=== PATIENT | male | born 1970 | race African-American/Black ===

== ENCOUNTER 2016-10-06 04:41 | Emergency (ER) | payer OTHER ==
[~2016-10-06] VITALS: Ht 180.3 cm; Wt 99.8 kg
[2016-10-06] MEDS ORDERED: INDOMETHACIN 2525 MG PO (05:30)
[2016-10-06] MEDS ORDERED: ULTRAM 50MG TAB50 MG PO (05:30)
[2016-10-06 06:10] VITALS: BP 176/96
== END 2016-10-06 05:32 | disposition home or self-care (01) ==
LOC: ER 04:41
DX: M79.672 Pain in left foot (principal); F17.210 Nicotine dependence, cigarettes, uncomplicated

== ENCOUNTER 2016-12-24 20:10 | Inpatient (IN) | payer OTHER ==
[~2016-12-24] VITALS: Ht 180.3 cm; Wt 95.7 kg
--- NOTE | ~2016-12-24 | HC ---
[facility] [place] [address] CONSULTATION Name: ABIODUNJAMAAL Room #: 360-[facility] IN ..#: [id number] Admission: 12/24/16 Attend Phys: Jc Ackerman MD Discharge: 12/27/16 Date of : 66 Report #: [id number] THIS REPORT FOR: //name// CC: Alejandro Ackerman DATE OF SERVICE: 12/26/2016 HISTORY OF PRESENT ILLNESS: The patient is a 40-year-old -[place] male who was admitted with acute mental status changes and problems with speech. MRI revealed a large left basal ganglia CVA. Neurology is involved. Upon discussion with the patient's girlfriend, she notes significant problems with his mentation abilities and concerns with overall functional independence. PAST MEDICAL HISTORY: Includes diabetes mellitus and hypertension. MEDICATIONS: Please see the full medication listing. HABITS: Tobacco abuse 1 pack per day. SOCIAL HISTORY: He lives in an apartment with female significant other, one floor, no steps, does not utilize gait aids. 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 No family in the area. ALLERGIES: No known drug allergies. REVIEW OF SYSTEMS: No current complaints of chest pain, shortness of breath, or abdominal discomfort. The assessment is somewhat limited with his speech difficulties. No obvious focal extremity pain complaints. PHYSICAL EXAMINATION: GENERAL: A 46-year-old -[place] male in no obvious distress. The patient is alert. He is pleasant. VITAL SIGNS: Last recorded temperature 98.9, pulse 71, respirations 18, blood pressure 163/99. HEENT: Appeared to be benign. NEUROLOGIC: Cranial nerves grossly intact. Facies are symmetric. He has obvious significant word finding difficulties with word substitution. He could follow some basic 1-step commands, but has difficulty in knowing exactly what I am asking him. I had some difficulty assessing his upper extremity strength as he was uncertain regarding what I was asking him to do as far as testing cat skinner strength. EXTREMITIES: As far as the upper extremities, he has functional range of motion, strength is probably a grade 4+/5. Lower extremities, functional range of motion, strength appears to be a 4+/5. DTRs are grade 1-[address]. [address] [address] CONSULTATION Name: JAMAAL RASCON Room #: 360-P [facility].#: [id number] Admission: 12/24/16 Attend Phys: Jc Ackerman MD Discharge: 12/27/16 Date of : 66 Report #: [id number] ASSESSMENT: A 46-year-old -[place] male with the following problem list: 1. Large left basal ganglia cerebrovascular accident. 2. Significant aphasia with word substitution. He has both the receptive and an expressive component. 3. Functional mobility and ADL deficits, which are to be further assessed. 4. Diabetes mellitus. 5. Hypertension. 6. Tobacco abuse. PLAN: Therapy evaluations are underway. We will be glad to follow along with you regarding rehab therapy needs. <ELECTRONICALLY SIGNED> By: Obey De Los Santos MD 01/03/17 1116 [id number] Obey De Los Santos MD /[facility]
--- NOTE | ~2016-12-24 | EKG ---
[place] [address] [facility] [place] [address] ELECTROCARDIOGRAM REPORT Name: JAMAAL RASCON Maria Esther Room #: 360-P ADM IN M.R.#: [id number] Admission: 12/24/16 Attend Phys: Jamaal Trevino DO Discharge: Date of : 66 Report #: [id number] THIS REPORT FOR: //name// [facility] ED Test Date: 2016-12-24 Test Time: 20:19:17 Pat Name: JAMAAL RASCON Department: Room: 360 Gender: M Shake Loader: Christi PRAJAPATI : 1970 Requested By: Kal Resendiz Order Number: [id number] MD: Phil Sarah Measurements Intervals [place] Rate: 78 P: 45 MO: 158 QRS: 29 QRSD: 100 T: 13 QT: 390 QTc: 445 Interpretive Statements Sinus rhythm Multiple premature complexes, vent & supraven Probable left atrial enlargement ST elev, probable normal early repol pattern No previous ECG available for comparison Electronically Signed On 12-25-2016 10:39:33 CDT by Phil Sarah [email or web address] <ELECTRONICALLY SIGNED> By: Phil Sarah MD 12/25/16 1039 18 18 Phil Sarah MD /[facility]
--- NOTE | ~2016-12-24 | 2DMMODE ---
[facility] [address] [place] [address] 2 D/M-MODE ECHOCARDIOGRAM Name: JAMAAL RASCON Room #: 360-P [facility] IN ..#: [id number] Admission: 12/24/16 Attend Phys: Roxanne Haro Discharge: Date of : 66 Date of Service: 12/26/16 1155 Report #: [id number] THIS REPORT FOR: //name// APPROVED REPORT Study performed: 12/26/2016 10:26:26 EXAM: Comprehensive 2D, Doppler, and color-flow Echocardiogram Patient Location: Bedside Room #: 360 Status: routine BSA: 2.14 BP: 171/99 mmHg Other Information Study Quality: Good Indications CVA/TIA Diabetes Hypertension/HDD Echo Enhancing Agent Indication: Rule out Shunt Agent(s) / Amount(s) Used: Agitated Saline 8 cc 2D Dimensions RVDd: 30.02 mm LVEF(%): 59.41 (>50%) IVSd: 17.03 (7-11mm) LVOT Diam: 29.32 (18-24mm) LVDd: 45.82 mm PWd: 16.88 (7-11mm) Ascending Ao: 37.16 (22-36mm) LVDs: 31.41 (25-40mm) Aortic Root: 39.76 mm IVC: 21.00 mm Alfonso's LVEF: 59.41 % Volumes Left Atrial Volume (Systole) Single Plane 4CH: 56.74 mL Single Plane 2CH: 44.87 mL LA ESV Index: 26.00 mL/m2 Aortic Valve AoV Peak Rip.: 1.21 m/s AO Peak Gr.: 5.86 mmHg LVOT Max P.49 mmHg LVOT Max V: 0.93 m/s [facility] [address] [place] [address] 2 D/M-MODE ECHOCARDIOGRAM Name: JAMAAL RASCON Room #: [address] [place] [address] [place] ..#: [id number] Admission: 12/24/16 Attend Phys: Roxanne Haro Discharge: Date of : 66 Date of Service: 12/26/16 1155 Report #: [id number] SANDRO Vmax: 5.20 cm2 Mitral Valve E/A Ratio: 0.7 MV Decel. Time: 203.14 ms MV E Max Rip.: 0.46 m/s MV A Rip.: 0.70 m/s MV PHT: 58.91 ms IVRT: 159.17 ms Pulmonary Valve PV Peak Rip.: 0.91 m/s PV Peak Gr.: 3.33 mmHg Pulmonary Vein P Vein S: 0.58 m/s P Vein A: 0.18 m/s P Vein D: 0.31 m/s P Vein A Dur.: 83.0 msec P Vein S/D Ratio: 1.87 Tricuspid Valve TR Peak Rip.: 2.63 m/s RAP Estimate: 5.00 mmHg TR Peak Gr.: 27.75 mmHg Left Ventricle The left ventricle is normal size. Moderate concentric left ventricular hypertrophy. Left ventricular systolic function is borderline. LVEF is 50%. Mild diastolic dysfunction is present (impaired relaxation pattern). Right Ventricle The right ventricle is normal size. The right ventricular systolic function is normal. Atria The left atrium size is normal. Injection of bubbles documented no interatrial shunt. Aortic Valve The aortic valve is normal in structure. No aortic regurgitation is present. There is no aortic valvular stenosis. Mitral Valve The mitral valve is normal in structure. Trace mitral regurgitation. No evidence of mitral valve stenosis. Tricuspid Valve The tricuspid valve is normal in structure. There is trace to mild [facility] [address] [place] [address] 2 D/M-MODE ECHOCARDIOGRAM Name: ABIODUNJAMAAL Room #: 360-P [facility] IN [facility]#: [id number] Admission: 12/24/16 Attend Phys: Roxanne Haro Discharge: Date of : 66 Date of Service: 12/26/16 1155 Report #: [id number] tricuspid regurgitation. The right atrial pressure is estimated at 5 mmHg. PAP is estimated at 33 mmHg. Pulmonic Valve The pulmonary valve is normal in structure. Trace pulmonic regurgitation. Great Vessels Aortic root is borderline dilated. Ascending aorta is borderline dilated at 3.7 cm IVC is normal in size and collapses >50% with inspiration. Pericardium There is no pericardial effusion. <Conclusion> The left ventricle is normal size. Moderate concentric left ventricular hypertrophy. LVEF is 50%. Mild diastolic dysfunction is present (impaired relaxation pattern). The right ventricle is normal size. The left atrium size is normal. There is no aortic valvular stenosis. Trace mitral regurgitation. There is trace to mild tricuspid regurgitation. The right atrial pressure is estimated at 5 mmHg. PAP is estimated at 33 mmHg. Trace pulmonic regurgitation. IVC is normal in size and collapses >50% with inspiration. <ELECTRONICALLY SIGNED> By: Ben Johnson MD, FACC 12/26/16 1155 1155 1155 Ben Johnson MD, FACC /INF
[~2016-12-24 20:10] MED LIST: INDOMETHACIN 2525 MG PO; ULTRAM 50MG TAB50 MG PO
[2016-12-24 20:12] VITALS: BP 149/97
[2016-12-24 20:37] LABS: ABSOLUTE NEUTROPHILS 3.6 thou/uL (1.4-8.2); BASOPHILS 1.2 % (0.0-2.0); EOSINOPHILS 5.7 % (0.0-3.0); HEMATOCRIT 38.6 % (42.0-52.0); HEMOGLOBIN 12.9 gm/dL (14.0-18.0); LYMPHOCYTES 34.2 % (24.0-44.0); MANUAL DIFF NO; MCH 28.6 pg (26.0-34.0); MCHC 33.4 g/dL (28.0-37.0); MCV 85.8 fL (80.0-100.0); MONOCYTES 7.8 % (1.0-8.0); PLATELET COUNT 210 thou/uL (150-400); POLYS 51.1 % (36.0-66.0); RDW 14.4 % (10.5-14.5); WBC 7.1 thou/uL (4.0-11.0)
[2016-12-24 20:46] LABS: ANION GAP 8 mmol/L (7-16); BUN 21 mg/dL (7-18); CALCIUM 9.4 mg/dL (8.5-10.1); CHLORIDE 104 mmol/L (98-107); CO2 29 mmol/L (21-32); CREATININE 1.2 mg/dL (0.7-1.3); GLUCOSE 250 mg/dL (74-106); POTASSIUM 3.2 mmol/L (3.5-5.1); SODIUM 141 mmol/L (136-145)
[2016-12-24] MEDS ORDERED: COZAAR 50 MG TA50 M2 PO (20:47)
[2016-12-24] MEDS ORDERED: METFORMIN HCL500 MG PO (20:48)
[2016-12-24] MEDS ORDERED: LIPITOR10 MG PO (20:48)
[2016-12-24 20:52] LABS: APTT 25.7 Seconds (24.5-32.8)
[2016-12-24 20:55] LABS: ALBUMIN 3.7 g/dL (3.4-5.0); ALKALINE PHOSPHATASE 102 U/L (46-116); MAGNESIUM 1.6 mg/dL (1.8-2.4); SGOT 15 U/L (15-37); SGPT 29 U/L (30-65); TOTAL BILIRUBIN 0.6 mg/dL (<0.1-1.0); TOTAL PROTEIN 7.1 g/dL (6.4-8.2); TROPONIN-I < 0.04 ng/mL (<0.04-0.07)
[2016-12-24 21:34] VITALS: BP 147/84
[2016-12-24 21:52] VITALS: BP 175/105
[2016-12-25 00:47] VITALS: BP 173/90
[2016-12-25 04:42] LABS: HEMATOCRIT 37.7 % (42.0-52.0); HEMOGLOBIN 12.4 gm/dL (14.0-18.0); MCH 28.4 pg (26.0-34.0); MCHC 32.9 g/dL (28.0-37.0); MCV 86.3 fL (80.0-100.0); RBC 4.36 mil/uL (4.50-6.00); RDW 14.6 % (10.5-14.5); WBC 5.9 thou/uL (4.0-11.0)
[2016-12-25 04:57] LABS: CALCIUM 8.7 mg/dL (8.5-10.1); POTASSIUM 3.3 mmol/L (3.5-5.1)
[2016-12-25 05:11] LABS: CHOLESTEROL 162 mg/dL (<200); HDL CHOLESTEROL 44 mg/dL (>40); LDL CHOLESTEROL 111 mg/dL (<100); SERUM ASSESSMENT Clear; TC:HDL 3.7 Ratio (Not establshd); TRIGLYCERIDE 38 mg/dL (<150); VLDL 8 mg/dL (<40)
[2016-12-25 05:16] VITALS: BP 167/103
[2016-12-25 09:33] VITALS: BP 172/99
[2016-12-25 11:09] LABS: MAGNESIUM 2.2 mg/dL (1.8-2.4); POTASSIUM 3.6 mmol/L (3.5-5.1); TROPONIN-I < 0.04 ng/mL (<0.04-0.07)
[2016-12-25 14:18] VITALS: BP 185/97
[2016-12-25 17:30] VITALS: BP 181/92
[2016-12-25 18:09] LABS: GLYCOHEMOGLOBIN (HGB A1C) 9.6 % (4.8-5.6)
[2016-12-25 20:00] VITALS: BP 175/100
[2016-12-26 04:00] VITALS: BP 171/99
[2016-12-26 05:04] LABS: BASOPHILS 0.9 % (0.0-2.0); EOSINOPHILS 5.1 % (0.0-3.0); HEMATOCRIT 37.9 % (42.0-52.0); HEMOGLOBIN 12.5 gm/dL (14.0-18.0); LYMPHOCYTES 25.1 % (24.0-44.0); MCH 28.3 pg (26.0-34.0); MCV 85.8 fL (80.0-100.0); MONOCYTES 5.8 % (1.0-8.0); PLATELET COUNT 203 thou/uL (150-400); POLYS 63.1 % (36.0-66.0); RBC 4.42 mil/uL (4.50-6.00); RDW 14.1 % (10.5-14.5); WBC 6.3 thou/uL (4.0-11.0)
[2016-12-26 05:10] LABS: MANUAL DIFF NO
[2016-12-26 05:17] LABS: CREATININE 0.8 mg/dL (0.7-1.3); MAGNESIUM 1.6 mg/dL (1.8-2.4); POTASSIUM 3.3 mmol/L (3.5-5.1)
[2016-12-26 05:38] LABS: LARGE PLATELETS FEW
[2016-12-26 08:00] VITALS: BP 163/99
[2016-12-26 11:46] LABS: CALCIUM 8.9 mg/dL (8.5-10.1); CREATININE 0.9 mg/dL (0.7-1.3); POTASSIUM 3.4 mmol/L (3.5-5.1)
[2016-12-26 11:47] LABS: MAGNESIUM 1.6 mg/dL (1.8-2.4)
[2016-12-26 12:00] VITALS: BP 176/98
[2016-12-26 16:00] VITALS: BP 150/95
[2016-12-26 20:10] VITALS: BP 170/92
[2016-12-26 22:11] LABS: MAGNESIUM 1.3 mg/dL (1.8-2.4); POTASSIUM 3.3 mmol/L (3.5-5.1)
[2016-12-27] VITALS: BP 161/79
[2016-12-27 05:30] VITALS: BP 156/84
[2016-12-27 06:57] LABS: CALCIUM 9.2 mg/dL (8.5-10.1); CREATININE 0.8 mg/dL (0.7-1.3); MAGNESIUM 2.4 mg/dL (1.8-2.4); POTASSIUM 3.9 mmol/L (3.5-5.1)
[2016-12-27 08:17] VITALS: BP 172/82
[2016-12-27] MEDS ORDERED: HUMALOG100 UNIT/1 SUBQ (11:39)
[2016-12-27] MEDS ORDERED: ADULT LOW DOSE81 MG PO (11:39)
[2016-12-27] MEDS ORDERED: PEPCID20 MG PO (11:39)
[2016-12-27 12:41] VITALS: BP 172/82
== END 2016-12-27 13:53 | DRG 64 ==
LOC: ER 20:10 → EROBS 21:06 → 3W 21:06
PROVIDERS: Emergency Medicine; Internal Medicine; Nurse Practitioner Family
PROC: 4A00X4Z Measurement of Central Nervous Electrical Activity, External Approach (ICD-10-PCS; principal; 2016-12-27)
DX: I63.9 Cerebral infarction, unspecified (principal); G93.40 Encephalopathy, unspecified; E11.9 Type 2 diabetes mellitus without complications; E87.6 Hypokalemia; E78.5 Hyperlipidemia, unspecified; E83.42 Hypomagnesemia; R47.01 Aphasia; I10 Essential (primary) hypertension; F17.210 Nicotine dependence, cigarettes, uncomplicated; Z79.84 Long term (current) use of oral hypoglycemic drugs; Z79.899 Other long term (current) drug therapy; Z23 Encounter for immunization; Z71.6 Tobacco abuse counseling; Z83.3 Family history of diabetes mellitus; Z82.3 Family history of stroke
CPT/HCPCS: 10779

== ENCOUNTER 2016-12-27 11:02 | Inpatient (IN) | payer OTHER ==
[~2016-12-27] VITALS: Ht 180.3 cm; Wt 94.3 kg
--- NOTE | ~2016-12-27 | PLAN ---
[facility] [place] [address] REHAB UNIT PLAN OF CARE Name: JAMAAL RASCON Room #: 513-P ADM IN M.R.#: [id number] Admission: 12/27/16 Attend Phys: Obey De Los Santos MD Discharge: Date of : 66 Report #: [id number] THIS REPORT FOR: //name// CC: Obey Sierra DATE OF SERVICE: 12/30/2016 SUBJECTIVE: The patient is seen back today in followup. No new complaints. Temperature 98.1, pulse 63, respirations 20, blood pressure 159/83. Transfers are standby assistance with gait min assist 250 feet without a device. In occupational therapy, he is supervisioned for upper body dressing and supervisioned for lower body dressing. In speech therapy, he does have moderate to severe comprehensive deficits with moderate to severe expressive deficits. ASSESSMENT: 1. Large left basal ganglia cerebrovascular accident. 2. Significant aphasia with expressive and receptive component. 3. Mild right-sided hemiparesis, improving, still with functional mobility and ADL deficits noted. 4. Functional mobility and ADL deficits. 5. Diabetes mellitus. 6. Hypertension. 7. Tobacco abuse. PLAN: The overall plan of care is based on the preadmission screen, post-admission physician evaluation and information garnered from therapy assessments. 1. Estimated length of stay is at least 10 days to 2 weeks pending progress. 2. Medical prognosis is reasonably good. 3. Anticipated interventions includes the interdisciplinary acute inpatient rehabilitation program. 4. Anticipated functional outcomes would be for the patient to hopefully be modified independent with mobility, ADLs and improvement in cognition and communication. 5. Discharge would be back home with his significant other. 6. Expected therapy by discipline includes PT, OT and speech 1 hour per day each five days a week throughout the duration of the acute inpatient rehabilitation stay. <ELECTRONICALLY SIGNED> By: Obey De Los Santos MD 01/03/17 1116 1017 0006 Obey De Los Santos MD /[facility]
--- NOTE | ~2016-12-27 | H ---
[facility] [place] [address] HISTORY AND PHYSICAL Name: JAMAAL RASCON Room #: 513-P ADM IN M.R.#: [id number] Admission: 12/27/16 Attend Phys: Obey De Los Santos MD Discharge: Date of : 66 Report #: [id number] THIS REPORT FOR: //name// CC: Obey Sierra DATE OF SERVICE: 12/27/2016 HISTORY OF PRESENT ILLNESS: The patient is a 40-year-old -[place] male who was originally admitted with acute mental status changes and problems with speech. MRI revealed a large left basal ganglia CVA. Neurology has been involved. The MRI did show subacute infarcts involving left parietal and temporal lobes in the middle cerebral artery distribution, most notable within the left basal ganglia. He was noted to have some right-sided weakness, upper extremity more than lower extremity with functional mobility and ADL deficits. He was noted to have significant speech problems with expressive aphasia. Some emotional ability. He is right handed. He has now been admitted for acute in-hospital inpatient rehabilitation. PAST MEDICAL HISTORY: Includes diabetes mellitus and hypertension. MEDICATIONS: Please see the full medication listing. This list includes his vitamin, herbals and supplements as far as we know. Each of these medications were individually reconciled upon admission to the rehab [place]. HABITS: Tobacco abuse 1 pack per day. SOCIAL HISTORY: Lives in an apartment with a female significant other, one floor, no steps. Did not utilize gait aids. 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 No family in the area. ALLERGIES: No known drug allergies. REVIEW OF SYSTEMS: No current complaints of chest pain, shortness of breath, abdominal discomfort. The assessment is limited with speech difficulties. No obvious focal extremity pain complaints. PHYSICAL EXAMINATION: GENERAL: A 46-year-old -[place] male, right-handed, in no obvious distress. The patient is alert. He is pleasant. VITAL SIGNS: Last recorded temperature 98, pulse 65, respirations 18, blood pressure 160/87. HEENT: Appeared to be benign. He may have some depressed right nasolabial fold. CHEST: Sounded clear to auscultation. CARDIOVASCULAR: Regular rate and rhythm. [facility] [address] [place] [address] HISTORY AND PHYSICAL Name: JAMAAL RASCON Room #: 513-P [facility] IN ..#: [id number] Admission: 12/27/16 Attend Phys: Obey De Los Santos MD Discharge: Date of : 66 Report #: [id number] ABDOMEN: Bowel sounds positive, nontender. GENITOURINARY AND RECTAL: Deferred. NEUROLOGIC: As far as speech, he does have definite word-finding deficits. He had difficulty telling me what type of work he did and was unable to say the word processing rep until his significant other started to word for him. Significant latency. He was able to tell me the place however and did some simple naming which was improved from when I saw him last. He is able to follow basic 1 step commands, but has more difficulty with increasing complexity. EXTREMITIES: Right upper extremity strength is grade 4 to 4-/5, right lower extremity is 4 to 4-, left upper and left lower extremity appeared to be full. He appears to have intact sensation to simultaneous stimulation both upper and lower extremities. DTRs are 1. Functionally, he has been contact guard with basic transfers and was min assist for ambulation at this point. He is swallowing on a regular thin diet per speech. ASSESSMENT: A 46-year-old -[place] male, right hand with the following problem list: 1. Large left basal ganglia cerebrovascular accident. 2. Significant aphasia with word substitution. He does have both the receptive and expressive component. 3. Mild right-sided hemiparesis, upper extremity greater than lower extremity. 4. Functional mobility and ADL deficits. 5. Diabetes mellitus. 6. Hypertension. 7. Tobacco abuse. PLAN: The patient is admitted for acute in-hospital inpatient rehabilitation. From a postadmission physician evaluation perspective, there are no relevant changes since the preadmission screening. Please see the above review of prior and current medical and functional conditions and comorbidities. Please see the patient's previous and current functional status. As far as risk of complications, he does have multiple medical comorbidities as noted above. Initial plan of care involves the interdisciplinary acute inpatient rehabilitation program with the goal of maximizing the patient's functional independence, so that he can hopefully return back to his prior living situation. Prognosis is reasonably good with estimated length of stay, probably around a week to 10 days, but we will need to see how he does in his therapies. Potential barriers would include his multiple medical comorbidities and decreased functional status. The patient does meet diagnostic criteria for an acute in-hospital inpatient rehabilitation stay. He meets medical necessity criteria. He does have the [address] [place] [address] HISTORY AND PHYSICAL Name: JAMAAL RASCON Room #: 513-P [facility] IN M.R.#: [id number] Admission: 12/27/16 Attend Phys: Obey De Los Santos MD Discharge: Date of : 66 Report #: [id number] tolerance for therapies and has appropriate discharge goals back to the home setting. <ELECTRONICALLY SIGNED> By: Obey De Los Santos MD 01/03/17 1116 0942 1155 Obey De Los Santos MD /[facility]
--- NOTE | ~2016-12-27 | HC ---
[facility] [place] [address] CONSULTATION Name: JAMAAL RASCON Room #: 513-P [facility] IN M.R.#: [id number] Admission: 12/27/16 Attend Phys: Obey De Los Santos MD Discharge: Date of : 66 Report #: [id number] THIS REPORT FOR: //name// CC: Obey Sierra DATE OF SERVICE: 12/31/2016 NEUROBEHAVIORAL STATUS EXAM ATTENDING PHYSICIAN: Obey De Los Santos MD TURF SALES PERSON: Adiel Meier, PhD CLINICAL PRESENTATION: The patient is a 46-year-old male admitted to the [facility] for comprehensive inpatient rehabilitation program to improve functional mobility, activities of daily living and self-care and mental status secondary to deficits from a large left basal ganglia CVA. He was at home with a female peer when he had difficulty with walking and eventually lost his balance and fell on to their bed. He was brought into the hospital and a MRI revealed a subacute infarction within the left parietal and temporal lobes in the middle cerebral artery distribution. His diagnoses on admission included a large left basal ganglia CVA, significant aphasia with word substitution, both receptive and expressive deficits, mild right hemiparesis, functional mobility and ADL deficits, diabetes mellitus, hypertension and tobacco abuse. A complete description of his medical condition, history and medications can be found in his medical record. Neuropsychological consultation was requested to provide assistance in the assessment of cognitive and emotional status and to provide recommendations and services. Prior to this most recent admission, he was living with a female peer in his home. The patient has no children. He had 1 sister that in 2011. Both parents are . 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 The patient has a remote history of drug abuse that includes treatment for crack cocaine. His treatment was completed seven years ago. There is no current use of alcohol or drugs. TECHNIQUES UTILIZED: Clinical interview, review of medical records, staff consultation and behavioral observation, mini mental status exam 2 standard version and family interview - female core winder machine operator. EXAMINATION FINDINGS: The patient was alert and cooperative with the assessment. He presents with diminished auditory comprehension. Auditory [facility] [address] [place] [address] CONSULTATION Name: ABIODUNJAMAAL Room #: 513-P [facility] IN .R.#: [id number] Admission: 12/27/16 Attend Phys: Obey De Los Santos MD Discharge: Date of : 66 Report #: [id number] comprehension is better maintained than expression. The patient does not report auditory or visual hallucinations. There is evidence of perseveration and intrusion errors contributing to executive dysfunction. He was perseverative throughout the assessment. Cognitive deficits are currently severe. The extent of his aphasia interferes with formal assessment of neurocognitive functioning. Given the deficits from aphasia, he was able to name common objects, repeat a specific sentence and show adequate auditory comprehension for a 3-step command. He was also is able to read and follow a single command. This type of presentation suggests aphasia with better maintained comprehension than expression. Intermittent depression and frustration is suggested with difficulty in verbal expression. DIAGNOSTIC IMPRESSION: Major neurocognitive disorder due to vascular disease, with intermittent frustration from impairment and communication -- extent to be determined. Adjustment disorder with depressed mood. RECOMMENDATIONS: The patient will benefit from the use of multiple choice options when responding to questions. Perseverative tendencies will interfere with an accurate response when questioned. Encourage the use of relaxation techniques and pausing for a refocusing of attention when perseverating his resopnse. Follow up neuropsychological testing in approximately 3-6 months will be of benefit to clarify the severity of his cognitive functioning. At this time, the use of compensatory strategies for aphasia will be helpful for the patient and his core winder machine operator. Thank you very much for allowing me to provide the consultation on this patient. <ELECTRONICALLY SIGNED> By: Adiel Meier, PhD 01/06/17 1516 1328 1501 Adiel Meier, PhD /nt
[~2016-12-27 11:02] MED LIST changes: +COZAAR 50 MG TA50 M2 PO; +LIPITOR10 MG PO; +METFORMIN HCL500 MG PO
[2016-12-27] MEDS ORDERED: ADULT LOW DOSE81 MG PO (11:39)
[2016-12-27] MEDS ORDERED: HUMALOG100 UNIT/1 SUBQ (11:39)
[2016-12-27] MEDS ORDERED: PEPCID20 MG PO (11:39)
[2016-12-27 19:45] VITALS: BP 160/87
[2016-12-28 04:29] LABS: HEMATOCRIT 36.5 % (42.0-52.0); HEMOGLOBIN 12.1 gm/dL (14.0-18.0); MCH 28.5 pg (26.0-34.0); MCHC 33.1 g/dL (28.0-37.0); MCV 86.1 fL (80.0-100.0); RBC 4.24 mil/uL (4.50-6.00); RDW 14.1 % (10.5-14.5); WBC 6.4 thou/uL (4.0-11.0)
[2016-12-28 04:38] LABS: CALCIUM 8.9 mg/dL (8.5-10.1); CREATININE 0.9 mg/dL (0.7-1.3); MAGNESIUM 1.7 mg/dL (1.8-2.4); POTASSIUM 3.5 mmol/L (3.5-5.1)
[2016-12-28 09:00] VITALS: BP 169/97
[2016-12-28 20:29] VITALS: BP 178/107
[2016-12-28 22:21] VITALS: BP 182/90
[2016-12-28 22:23] VITALS: BP 180/90
[2016-12-29 04:00] VITALS: BP 170/81
[2016-12-29 08:05] VITALS: BP 159/83
[2016-12-29 21:39] VITALS: BP 186/87
[2016-12-30 08:20] VITALS: BP 148/97
[2016-12-30 20:50] VITALS: BP 184/102
[2016-12-31 08:00] VITALS: BP 152/103
[2016-12-31 20:13] VITALS: BP 160/84
[2017-01-01 08:00] VITALS: BP 152/93
[2017-01-01 20:32] VITALS: BP 156/88
[2017-01-02 08:30] VITALS: BP 146/91
[2017-01-02 19:48] VITALS: BP 178/104
[2017-01-02 22:57] VITALS: BP 154/81
[2017-01-03 06:33] LABS: ABSOLUTE NEUTROPHILS 3.3 thou/uL (1.4-8.2); EOSINOPHILS 6.8 % (0.0-3.0); HEMATOCRIT 37.6 % (42.0-52.0); HEMOGLOBIN 12.5 gm/dL (14.0-18.0); LYMPHOCYTES 24.9 % (24.0-44.0); MCH 28.7 pg (26.0-34.0); MCHC 33.2 g/dL (28.0-37.0); MCV 86.3 fL (80.0-100.0); MONOCYTES 8.9 % (1.0-8.0); PLATELET COUNT 235 thou/uL (150-400); POLYS 58.4 % (36.0-66.0); RBC 4.36 mil/uL (4.50-6.00); RDW 14.3 % (10.5-14.5); WBC 5.7 thou/uL (4.0-11.0)
[2017-01-03 06:39] LABS: MANUAL DIFF NO
[2017-01-03 06:57] LABS: CALCIUM 9.6 mg/dL (8.5-10.1); CREATININE 0.9 mg/dL (0.7-1.3); MAGNESIUM 1.6 mg/dL (1.8-2.4)
[2017-01-03 07:06] LABS: POTASSIUM 4.1 mmol/L (3.5-5.1)
[2017-01-03 08:00] VITALS: BP 151/78
[2017-01-03 19:49] VITALS: BP 161/85
[2017-01-04 09:00] VITALS: BP 159/68
[2017-01-04 19:53] VITALS: BP 175/92
[2017-01-05 08:00] VITALS: BP 149/92
[2017-01-05] MEDS ORDERED: PEPCID20 MG PO (11:40)
[2017-01-05] MEDS ORDERED: COZAAR 50 MG TA50 M2 PO (11:40)
[2017-01-05] MEDS ORDERED: LIPITOR10 MG PO (11:40)
[2017-01-05] MEDS ORDERED: COLACE100 MG PO (11:40)
[2017-01-05] MEDS ORDERED: METFORMIN HCL500 MG PO (11:40)
[2017-01-05 16:25] VITALS: BP 175/92
[2017-01-05 20:45] VITALS: BP 160/77
[2017-01-06 06:40] VITALS: BP 175/92
[2017-01-06 08:13] VITALS: BP 165/78
[2017-01-06 13:57] VITALS: BP 175/92
== END 2017-01-06 16:19 | disposition home health service (06) | DRG 56 ==
LOC: ENTRNSPT 01-06 15:30 → EDTRNSPTSTS 01-06 15:40
PROVIDERS: Nurse Practitioner; Physical Medicine & Rehabilitation
DX: G81.91 Hemiplegia, unspecified affecting right dominant side (principal); I63.9 Cerebral infarction, unspecified; F01.51 Vascular dementia, unspecified severity, with behavioral disturbance; R47.01 Aphasia; E11.9 Type 2 diabetes mellitus without complications; F17.210 Nicotine dependence, cigarettes, uncomplicated; F43.21 Adjustment disorder with depressed mood; I10 Essential (primary) hypertension; E87.6 Hypokalemia; E83.42 Hypomagnesemia; E78.5 Hyperlipidemia, unspecified; Z71.6 Tobacco abuse counseling; Z23 Encounter for immunization
CPT/HCPCS: 10112

== ENCOUNTER 2017-02-28 15:40 | Inpatient (IN) | payer OTHER ==
[~2017-02-28] VITALS: Ht 180.3 cm; Wt 96.2 kg
--- NOTE | ~2017-02-28 | HC ---
[facility] [place] [address] CONSULTATION Name: JAMAAL RASCON Room #: 213-P ADM IN M.R.#: [id number] Admission: 02/28/17 Attend Phys: Jamaal Trevino DO Discharge: Date of : 66 Report #: [id number] THIS REPORT FOR: //name// CC: Jamaal Sierra DATE OF SERVICE: 03/01/2017 HISTORY OF PRESENT ILLNESS: This is a 47-year-old male patient who was seen by me first time for CVA. This patient's memory is poor and history is not very well defined. I reviewed the patient's record and this patient was seen by Dr. Solomon in December of this year for what looks like multiple CVAs in the brain, especially on the left side. He indicates that prior to the CVA he used to work, but after the CVA, he has been unable to go back to work. That is predominantly because of his problem with memory. He is still able to ambulate. He went to his primary and an EKG was done and that showed atrial fibrillation with a rapid ventricular rate and he was sent back to the hospital. Hospital EKG indicated multiple premature complexes. He is going to be seen by dot net architect this morning. They have already started the patient on anticoagulation. REVIEW OF SYSTEMS: Indicate that he does have multiple risk factors. He is a diabetic and hypertensive. If his atrial fibrillation is confirmed that will be another huge vascular risk factors for him. Otherwise, he is not complaining of any headache now. His memory is very poor. He does appear to have a history of uncontrolled hypertension in the past. This is his relevant 14-point review of systems. The record indicates that he is intolerant to statins and that is why he is not on statin. PAST MEDICAL HISTORY: Positive for CVA. FAMILY HISTORY: Negative for early age CVA. SOCIAL HISTORY: He used to smoke marijuana sometime ago, but he did not use much stroke causing drugs like amphetamines or cocaine. PHYSICAL EXAMINATION: His examinations indicate, he is alert, he is responsive, he does not know what month it is, he could not name the president and he does not know what hospital he is in. His speech looks relatively intact and fluent, though he hesitated some time. Cranial nerve examination 2-12 is difficult because of his cognitive problems, but I do not find any gross deficit. He moves both sides symmetrically. He says he has a good position sense in the lower extremities. His reflexes are diminished to some extent. He could not cooperate with the fundus examinations. He is otherwise a well-developed individual who does not have any dysmorphic features of eyes, ears and face. His hearing and vision looks adequate. Heart examinations indicate that he was [facility] [address] [place] [address] CONSULTATION Name: JAMAAL RASCON Room #: 213-P [facility] IN ..#: [id number] Admission: 02/28/17 Attend Phys: Jamaal Trevino DO Discharge: Date of : 66 Report #: [id number] in atrial fibrillation, but then he converted. He does not have any respiratory difficulty or rhonchi. Blood pressure is 144/93, respiration is 16, pulse is 88, temperature is 97.7. LABORATORY DATA: His white count is normal at 6.9. His record from the last time was reviewed and it looks like he had strokes at that time. His carotids were clean. IMPRESSION: 1. 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 2. Atrial fibrillation per first EKG. That is being addressed by cardiology and if atrial fibrillation is confirmed by them, then that will change the treatment to anticoagulation. It looks like they have already done that. 3. Multiple vascular risk factors, which he must control, he is a diabetic, he is hypertensive and he smokes. He was strongly advised to stop smoking. 3. His MRI picture was somewhat unusual last time. I will repeat the MRI to make sure he did not have any recent stroke with this episode of atrial fibrillation since he is going to be on anticoagulation and to make sure the stroke is not going to become hemorrhagic. That possibility is considered less likely, but we would like to exclude that because of the catastrophic consequences if that is present. RECOMMENDATIONS: 1. I will repeat the MRI in this patient. 2. I will do a few more blood workup in this patient, which I ordered for the stroke. 3. Main management is going to be the management of his multiple vascular risk factors, which include diabetes, hypertension, smoking, and atrial fibrillation, which will be done by primary as well as cardiology. 4. He has significant cognitive impairment because of left hemispheric CVA. He needs to follow up with speech therapy on a constant basis in that regard and when he is in the hospital, we will go ahead and put a consult for them. I had a long discussion with this patient and I discussed all of it in great detail with the patient and he understands all those. Thank you very much for this referral. By: [id number] Emre Valverde MD /nt
--- NOTE | ~2017-02-28 | EKG ---
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 : 1970 Requested By: Kyrie Claudio Order Number: [id number] MD: Afshin Dai Measurements Intervals [place] Rate: 96 P: 47 WV: 155 QRS: 27 QRSD: 99 T: 25 QT: 354 QTc: 448 Interpretive Statements Sinus tachycardia Multiple premature complexes, vent & supraven Probable left atrial enlargement ST elev, probable normal early repol pattern Compared to ECG 12/24/2016 20:19:17 Sinus rhythm no longer present ST (T wave) deviation still present Electronically Signed On 02-28-2017 21:12:13 GLUING MACHINE OPERATOR by Afshin Dai [email or web address] <ELECTRONICALLY SIGNED> By: Afshin Dai MD 02/28/172111 00 00 Afshin Dai MD /EPI
--- NOTE | ~2017-02-28 | HC ---
[facility] [place] [address] CONSULTATION Name: JAMAAL RASCON Room #: 213-P [facility] IN ..#: [id number] Admission: 02/28/17 Attend Phys: Jamaal Trevino DO Discharge: 03/02/17 Date of : 66 Report #: [id number] THIS REPORT FOR: //name// CC: Jamaal Sierra DATE OF SERVICE: 03/01/2017 Nephrology Consultation REASON FOR CONSULTATION: Hypokalemia and hypertension. HISTORY OF PRESENT ILLNESS: This is a 47-year-old male who has a long history of poor compliance with medical recommendations and untreated medical conditions. He was diagnosed in his 20s with some diabetes mellitus. He basically was on no treatment for the better part of 20+ years. Only over the past couple of months, has he been on treatment. He also has a history of hypertension dating back at least 10 years, also untreated until the past couple of months. All of this came ahead in 12/2016 when he presented with a CVA. That original presentation was right-sided weakness and aphasia. The right-sided weakness improved. These symptoms do not really match the fact that he had a right-sided CVA on scans. Nevertheless, his main defect continues to be some expressive aphasia. He has regained function of arms and legs, is able to ambulate and able to use both arms fairly well. He ended up spending some time on the rehab floor prior to being discharged to home and did fairly well from that standpoint. During that time, he was put on several different medications. His blood pressure was treated to a moderately controlled level appropriate for his CVA, it was not over treated. At home, he was on some losartan, but pressure was still high. He originally had some nifedipine added to that, but his blood pressure was still high. Then, he was found to have a rapid heart rhythm and rate and was sent to the Emergency Room where he was found to be in atrial fib with rapid ventricular response. That was a couple of days ago. He converted spontaneously to a sinus rhythm and has remained in sinus rhythm since that time. Blood pressure though, has been exceedingly high. From what I can tell, he has not had further CVAs. There is no documented atrial fib or arrhythmias associated with his original CVA in 12/2016. During this hospitalization, the patient was also found to be hypokalemic. His admitting potassium level was 2.9, sodium was 143, bicarbonate was 28. It is a little difficult to tell off the computer, but it looks like he got anywhere from 40-120 mEq potassium. Potassium level came up to 3.5 by today. During his December admission, he had a few mildly low potassium levels on 3.2-3.4 range, but had discharge potassium of 4.1. He has had a normal renal function throughout with creatinine levels in the 0.8 range. He also had mild low [facility] [address] [place] [address] CONSULTATION Name: JAMAAL RASCON Room #: 213-P [facility] IN .R.#: [id number] Admission: 02/28/17 Attend Phys: Jamaal Trevino DO Discharge: 03/02/17 Date of : 66 Report #: [id number] magnesium levels at 1.7 and that has been replaced. No urinalysis has been done. Because his blood pressure was elevated, he had a renal ultrasound and Doppler evaluation, apparently done as an outpatient as ordered by Dr. Driscoll. His fiance tells me that was performed in an outpatient setting two days ago on 02/27 and we have no results of that. MEDICATIONS ON ADMISSION: Include losartan 50 mg b.i.d., Pepcid 20 mg daily, metformin 1000 mg b.i.d., nifedipine 30 mg daily, which was just recently started and aspirin 81 mg daily. ALLERGIES: No known medical allergies. Since admission, he was started on some verapamil; this was all after he was converted to sinus rhythm. He also has some hydralazine added. He has been put on nicotine patch, p.r.n. medications are several. He has also been started on Eliquis 5 mg b.i.d. FAMILY HISTORY: Mother in her 60s of diabetic complications, hypertension status known. Father in his 70s with hypertension, diabetes and some heart disease, no prior CVA. Sister at a young age of HIV related diseases. SOCIAL HISTORY: The patient lives in [place], [place]. 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 He is accompanied by his fiance at this time. Up until admission, he continued to smoke 1 pack of cigarettes daily. REVIEW OF SYSTEMS: Biggest issue is the expressive aphasia. He was really not aware of palpitations or tachy-arrhythmias, no chest pain. Denies dyspnea, cough, no difficulty eating. He is able to take care of his activities of daily living, no difficulty voiding urine. No problems with edema. He did have some mild just related to his statin, but the statins have been stopped and that has gotten somewhat better. PHYSICAL EXAMINATION: GENERAL: A 47-year-old male, awake, alert, responsive with another obvious expressive aphasia at times, although, at sometimes he is able to speak fairly well. VITAL SIGNS: Blood pressure is 187/110, heart rate 79, temperature 97.9, oxygen saturation 100%. HEENT: Shows pupils are equal and reactive. Sclerae nonicteric. Oral mucosa is moist. Multiple teeth have been extracted or are absent. NECK: Supple, without adenopathy, thyromegaly, JVD or bruit. CHEST: Clear bilaterally. CARDIOVASCULAR: Heart has currently regular rate and rhythm with only [facility] [address] [place] [address] CONSULTATION Name: JAMAAL RASCON Room #: 213-P [facility]#: [id number] Admission: 02/28/17 Attend Phys: Jamaal Trevino DO Discharge: 03/02/17 Date of : 66 Report #: [id number] occasional prematurity. No murmur. No gallop. No rub. ABDOMEN: Has active bowel sounds, soft, nontender. No organomegaly or masses. No bruits are audible. EXTREMITIES: Show no peripheral edema. He has 2+ peripheral pulses. NEUROLOGIC: He has good upper and lower extremity strength and it is fairly symmetrical. LABORATORY DATA: On admission, sodium 143, potassium 2.9, chloride 106, bicarbonate 28, BUN 11, creatinine 0.8, today potassium 3.5, bicarbonate 28, calcium 8.7, magnesium up to 2.0. Normal CBC including white count 6.9, hemoglobin 14.8, hematocrit 44.6, platelets 242,000. Urinalysis have been ordered, but not available. ASSESSMENT: 1. Hypokalemia with hypertension. There are always considerations at this point of a secondary cause of hypertension such as renal artery stenosis, hyperaldosteronism. His potassium though replaced fairly readily, more likely that this is longstanding uncontrolled hypertension with associated secondary potassium wasting. His bicarbonate does run about 28, so certainly we do have to consider a possibility of hyperaldosteronism or hypercortisolism, but I think the overriding factors the fact he has had hypertension for a couple of decades and it has never been treated until recently, I think most likely that this the long-term sequelae of untreated severe hypertension. That being said, we do want to get the results of his renal ultrasound that was done a couple of days ago, although renal artery Doppler is not all that reliable. We will try to get those results and see what it shows. He continues on losartan, which is important. He has been placed on verapamil to assist with rate control. He has been put on hydralazine, which would be difficult to take on a t.i.d. basis in his home environment, so we need to consider changing that. We certainly want to continue the losartan. Another consideration is always some spironolactone replacement, which should help with potassium control as well as blood pressure control. He, long-term likely will need some diuretic either a combination of a thiazide in the spironolactone or spironolactone alone. He is far enough out from his CVA, we are going to start bringing his blood pressure down more aggressively. 2. Longstanding diabetes mellitus with poor control. 3. Longstanding essential hypertension. He has a long family history. He has a long history of untreated blood pressure on his own account, so I doubt there is a secondary etiology. 4. Recent cerebrovascular accident. Still with some residual aphasia, but overall fairly well maintained from a neurologic standpoint. 5. Presentation of atrial fibrillation with rapid ventricular response. He has been in sinus rhythm. So, the verapamil is a reasonable choice this time. We will also consider some diltiazem. PLAN: [facility] [address] [place] [address] CONSULTATION Name: JAMAAL RASCON Room #: 213-P [facility] IN M.R.#: [id number] Admission: 02/28/17 Attend Phys: Jamaal Trevino DO Discharge: 03/02/17 Date of : 66 Report #: [id number] 1. We will get urinalysis and check for proteinuria. It is always very important when dealing with longstanding diabetes, hypertension and uncontrolled blood pressure. 2. As his potassium has been fairly easily corrected, I think that chances of him having either hyperaldosteronism or hypercortisolism are low. I think at this point, it is better to just get him started on some spironolactone and see how he responds. 3. Obtain the results of his renal ultrasound and Doppler evaluation. 4. Repeat labs in the morning. 5. We will follow along the care of this pleasant patient. <ELECTRONICALLY SIGNED> By: Ben Gonzalez MD 03/03/17 1046 [id number] Yao Little MD /nt
--- NOTE | ~2017-02-28 | EKG ---
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
[~2017-02-28 15:40] MED LIST changes: +ADULT LOW DOSE81 MG PO; +COLACE100 MG PO; +HUMALOG100 UNIT/1 SUBQ; +PEPCID20 MG PO
[2017-02-28 15:41] VITALS: BP 148/121
[2017-02-28] MEDS ORDERED: NIFEDIPINE ER30 M1 PO (16:07)
[2017-02-28 16:13] LABS: ABSOLUTE NEUTROPHILS 3.4 thou/uL (1.4-8.2); BASOPHILS 1.1 % (0.0-2.0); EOSINOPHILS 6.6 % (0.0-3.0); HEMATOCRIT 44.6 % (42.0-52.0); HEMOGLOBIN 14.8 gm/dL (14.0-18.0); LYMPHOCYTES 34.8 % (24.0-44.0); MCH 28.5 pg (26.0-34.0); MCHC 33.2 g/dL (28.0-37.0); MCV 85.8 fL (80.0-100.0); MONOCYTES 7.9 % (1.0-8.0); PLATELET COUNT 242 thou/uL (150-400); POLYS 49.6 % (36.0-66.0); RDW 14.3 % (10.5-14.5); WBC 6.9 thou/uL (4.0-11.0)
[2017-02-28 16:15] LABS: MANUAL DIFF NO
[2017-02-28 16:20] LABS: ANION GAP 9 mmol/L (7-16); BUN 11 mg/dL (7-18); CALCIUM 9.9 mg/dL (8.5-10.1); CHLORIDE 106 mmol/L (98-107); CO2 28 mmol/L (21-32); CREATININE 0.8 mg/dL (0.7-1.3); GLUCOSE 115 mg/dL (74-106); SODIUM 143 mmol/L (136-145)
[2017-02-28 16:21] LABS: POTASSIUM 2.9 mmol/L (3.5-5.1)
[2017-02-28 16:28] LABS: TROPONIN-I < 0.04 ng/mL (<0.06)
[2017-02-28] MEDS ORDERED: NITROGLYCERIN0.4 MG SUBLING (17:17)
[2017-02-28 17:39] VITALS: BP 176/106
[2017-02-28 18:00] VITALS: BP 166/101
[2017-02-28 19:25] VITALS: BP 153/88
[2017-02-28 23:59] VITALS: BP 179/91
[2017-03-01 03:30] VITALS: BP 177/111
[2017-03-01 03:57] LABS: CALCIUM 8.7 mg/dL (8.5-10.1); CREATININE 0.8 mg/dL (0.7-1.3); POTASSIUM 3.5 mmol/L (3.5-5.1)
[2017-03-01 07:18] VITALS: BP 144/93
[2017-03-01 09:25] LABS: TSH 0.897 uIU/mL (0.358-3.740)
[2017-03-01 11:56] VITALS: BP 162/87
[2017-03-01 16:53] VITALS: BP 174/104
[2017-03-01 19:15] VITALS: BP 187/110
[2017-03-01 22:25] LABS: URINE BILIRUBIN NEGATIVE (Negative); URINE BLOOD NEGATIVE (Negative); URINE COLOR YELLOW; URINE GLUCOSE-RANDOM* NEGATIVE (Negative); URINE KETONES NEGATIVE (Negative); URINE NITRITE NEGATIVE (Negative); URINE PROTEIN (DIPSTICK) NEGATIVE (Negative); URINE SPECIFIC GRAVITY 1.015 (1.005-1.035); URINE UROBILINOGEN 0.2 E.U./dl (0.2-1.0)
[2017-03-01 22:29] LABS: PROT/CREAT RATIO 0.1; URINE CREATININE-RANDOM* 57.1 mg/dL; URINE PROTEIN-RANDOM* 8.5 mg/dL (<11.9)
[2017-03-01 23:51] VITALS: BP 157/93
[2017-03-02 03:58] LABS: ABSOLUTE NEUTROPHILS 3.8 thou/uL (1.4-8.2); EOSINOPHILS 7.2 % (0.0-3.0); HEMATOCRIT 42.1 % (42.0-52.0); LYMPHOCYTES 26.9 % (24.0-44.0); MCH 28.5 pg (26.0-34.0); MCHC 33.3 g/dL (28.0-37.0); MCV 85.6 fL (80.0-100.0); MONOCYTES 6.9 % (1.0-8.0); PLATELET COUNT 231 thou/uL (150-400); RBC 4.91 mil/uL (4.50-6.00); WBC 6.6 thou/uL (4.0-11.0)
[2017-03-02 04:00] VITALS: BP 156/101
[2017-03-02 04:02] LABS: MANUAL DIFF NO
[2017-03-02 04:17] LABS: CALCIUM 9.2 mg/dL (8.5-10.1); CREATININE 0.8 mg/dL (0.7-1.3); POTASSIUM 3.5 mmol/L (3.5-5.1)
[2017-03-02 07:44] VITALS: BP 145/91
[2017-03-02] MEDS ORDERED: ELIQUIS5 MG PO (08:26)
[2017-03-02 09:43] VITALS: BP 145/91
[2017-03-02 14:10] LABS: SYPHILIS AB Negative (Negative)
== END 2017-03-02 10:11 | disposition home or self-care (01) | DRG 310 ==
LOC: ER 15:40 → EROBS 17:15 → 2N 17:15 → ENTRNSPT 03-02 09:56 → EDTRNSPTSTS 03-02 09:59 → 2N 03-02 10:11
PROVIDERS: Family Medicine; Internal Medicine Nephrology; Nurse Practitioner; Psychiatry & Neurology Neuromuscular Medicine
DX: I48.91 Unspecified atrial fibrillation (principal); E87.6 Hypokalemia; E83.42 Hypomagnesemia; E78.5 Hyperlipidemia, unspecified; F12.90 Cannabis use, unspecified, uncomplicated; F17.210 Nicotine dependence, cigarettes, uncomplicated; I70.1 Atherosclerosis of renal artery; E26.9 Hyperaldosteronism, unspecified; E11.9 Type 2 diabetes mellitus without complications; I10 Essential (primary) hypertension; Z86.73 Personal history of transient ischemic attack (TIA), and cerebral infarction without residual deficits; Z79.01 Long term (current) use of anticoagulants; Z83.3 Family history of diabetes mellitus; Z82.49 Family history of ischemic heart disease and other diseases of the circulatory system; Z83.0 Family history of human immunodeficiency virus [HIV] disease; Z82.3 Family history of stroke; Z79.899 Other long term (current) drug therapy; Z79.82 Long term (current) use of aspirin; Z23 Encounter for immunization
CPT/HCPCS: 10081

== ENCOUNTER 2017-03-18 12:20 | Inpatient (IN) | payer OTHER ==
[~2017-03-18] VITALS: Ht 180.3 cm; Wt 93.6 kg
--- NOTE | ~2017-03-18 | HC ---
[facility] [place] [address] CONSULTATION Name: JAMAAL RASCON Room #: 514-P [facility] IN .R.#: [id number] Admission: 03/19/17 Attend Phys: Obey De Los Santos MD Discharge: Date of : 66 Report #: [id number] THIS REPORT FOR: //name// CC: Obey Sierra DATE OF SERVICE: 03/25/2017 ATTENDING PHYSICIAN: Obey De Los Santos MD HUMAN RESOURCES TEMP: Adiel Meier PhD CLINICAL PRESENTATION: The patient is a 47-year-old male admitted to the rehab unit at [facility] for comprehensive inpatient rehabilitation program to improve functional mobility, activities of daily living and self-care along with mental status following deficits from a cerebrovascular accident. He has a recent history of hospitalization on the rehab unit from a stroke in 12/2016. Prior to this current admission, the patient was traveling with his fiancee to [place] when he experienced an acute episoder of disorientation. He was brought to the ER of a hospital and diagnosed with an acute to subacute infarction of the posterior superior aspect of the left temporal lobe and a subacute to chronic infarction of the right frontal lobe without bleed. He carries a past medical history that includes diabetes mellitus, hypertension, prior cerebrovascular accidents, atrial fibrillation, hyperlipidemia and aphasia secondary to CVA. A complete description of his medical condition and history can be found in his medical record. Neuropsychological consultation was requested to provide assistance in the assessment of cognitive and emotional status and to provide recommendations and services. Prior to this most recent stroke, he was living with his fiancee in his home. The patient has no children. He had 1 sister that in 2011. Both parents are . 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 It should be noted that he has a remote history of drug abuse that includes crack cocaine. There is no reported current use of alcohol or illegal drugs. His fiancee is very supportive. TECHNIQUES UTILIZED: Clinical interview, review of medical records, staff consultation and behavioral observation, family interview - dean, mini-mental status exam 2 standard version and clock drawing. EXAMINATION FINDINGS: The patient was alert and cooperative with the assessment. He was able to indicate the reason for his hospitalization. He has an inconsistent recall of events for the last several weeks. There is evidence of expressive aphasia. Auditory comprehension is much better than expression. [address] [address] CONSULTATION Name: JAMAAL RASCON Room #: 514-P [facility] IN .R.#: [id number] Admission: 03/19/17 Attend Phys: Obey De Los Santos MD Discharge: Date of : 66 Report #: [id number] Intrusive thoughts and perseveration are noted throughout the assessment. Comprehension is much better maintained than expression; however, it is likely to be inconsistent for increasingly complex content. His performance on the MMSE 2 brief version is extremely low with a raw score of 10 of 16. However, the patient did present with orientation to time and orientation to place. However, perseveration and intrusive ideation interferes with the accuracy of his response to specific questions. He was 3 of 3 for initial registration. The patient was 0 of 3 for immediate recall of 3 verbally mediated items and memory. However, he was able to recognize the correct response when given cues. Performance on the MMSE 2 standard version is extremely low with raw score 18 of 30. He was 1 of 5 for serial 7s, he was 2 of 2 for naming. However, naming appears inconsistent. He could read and follow single command. The patient also is able to repeat a specific statement. He was unable to write to generate a sentence likely result of an impairment in initiative. However, he could write a dictated sentence. The patient was unable to copy simple geometric design likely secondary to apraxia. He was unable to draw clock and place numbers or set the hands to designated time. 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 The patient is presenting with expressive aphasia, constructional apraxia and preservative ideation. His mood is described as intermittently anxious and irritable when frustrated in his ability to communicate. His sleep is reported as good. Appetite is reduced secondary to his food preferences. 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 Adjustment disorder with anxious mood. RECOMMENDATIONS: The patient will require a supervised and structured environment to maintain safety. He is cooperative and responds well to prompts. Multiple choices can be provided to assist in independence and decision making. When perservative responses are noted, it will be of benefit to redirect his attention to focusing in on breathing strategies to relax with a redirection to the new required response or question. Perservation will interfere with new learning. To more effectively provide instructional information, ensure the patient is maintaining adequate attention to instructions. Followup neuropsychological testing will be of benefit to clarify the severity of cognitive deficits approximately 3 months post-stroke. [facility] [address] [place] [address] CONSULTATION Name: JAMAAL RASCON #: 514-P ADM IN M.R.#: [id number] Admission: 03/19/17 Attend Phys: Obey De Los Santos MD Discharge: Date of : 66 Report #: [id number] Thank you very much for allowing me to provide the consultation on this patient. <ELECTRONICALLY SIGNED> By: Adiel Meier, PhD 03/26/17 1459 [id number] [id number] Adiel Meier, PhD /nt
--- NOTE | ~2017-03-18 | H ---
[facility] [place] [address] HISTORY AND PHYSICAL Name: JAMAAL RASCON Room #: 514-P [facility] IN M.R.#: [id number] Admission: 03/19/17 Attend Phys: Obey De Los Santos MD Discharge: Date of : 66 Report #: [id number] THIS REPORT FOR: //name// CC: Obey Sierra DATE OF SERVICE: 03/20/2017 HISTORY OF PRESENT ILLNESS: The patient is a 47-year-old -Mosotho male previously known to me who was on the acute inpatient rehab [place] in 12/2016 after he had acute mental status changes and MRI revealed a large left basal ganglia CVA. At that time, he had subacute infarcts involving the left parietal and temporal lobes in the middle cerebral artery distribution. He made very nice progress during his rehab stay and was able to be discharged back to the home setting modified independent in the room without gait aids. He ended up being readmitted in 02/2017 for atrial fibrillation, was discharged on Eliquis. He had some residual deficit at that time consistent with expressive aphasia. He then presented to the [facility] in [place] for right-sided weakness and right-sided facial droop over the Tomas holidays. He was seen by a neurologist during that time. He underwent a CT of the brain which showed an acute to subacute infarct of the posterior superior aspect of the left temporal lobe and a subacute to chronic infarct of the right frontal lobe without bleed. CTA showed occlusion of the left M1 segment, reconstitution of the distal M1 diminutive right M1 segment, narrowing of the proximal basilar artery. The patient was continued on Eliquis. Nifedipine was discontinued and he was started on losartan and metoprolol. He was noted to have functional deficits with right-sided weakness and had some significant expressive aphasia and was transported and now admitted here to [facility] for further acute in-hospital inpatient rehabilitation. PAST MEDICAL HISTORY: Significant for diabetes mellitus and hypertension. He has had the prior CVAs as above. History of atrial fibrillation, on anticoagulation, and dyslipidemia. ALLERGIES: No known drug allergies. HABITS: Tobacco abuse 1 pack per day in the past. SOCIAL HISTORY: Lives in an apartment with a female significant other, one floor, no steps. Did not utilize gait aids. 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 REVIEW OF SYSTEMS: No current complaints of chest pain, shortness of breath or abdominal discomfort. NEUROLOGIC: Feels that he is improving as far as the right-sided weakness. He was not utilizing any gait aids when they went up to [place], but after the most [facility] [address] [place] [address] HISTORY AND PHYSICAL Name: ABIODUNJAMAAL Room #: 514-P [facility] IN M.R.#: [id number] Admission: 03/19/17 Attend Phys: Obey De Los Santos MD Discharge: Date of : 66 Report #: [id number] recent stroke, he has needed to utilize a cane. PHYSICAL EXAMINATION: GENERAL: A 47-year-old -Mosotho male in no obvious distress. He is alert. VITAL SIGNS: Last recorded temperature is 97.7, pulse 57, respirations 18, blood pressure 170/90. He is in his room with his significant other. EOMs appeared to be full. Facies are symmetric. Dentition is fair. CHEST: Sounded clear to auscultation. CARDIAC EXAM: Sounds irregular. ABDOMEN: Bowel sounds positive, nontender. GENITOURINARY AND RECTAL: Deferred. EXTREMITIES: He has functional range of motion of both upper extremities. Strength of that right upper extremity is a grade 4-4+/5, left upper extremity is 4+ to 5-. He has some mild decreased coordination with fine finger dexterity. He appears to have some mild higher level cognitive processing issues. His lower extremities there is no focal calf swelling. Strength is a grade 4-/5 right lower extremity and more of a grade 4-4+/5 left lower extremity. Sensation appeared reasonably intact to simultaneous stimulation bilateral upper and lower extremities. DTRs were 1. There is no clonus. Negative Villalobos's. He has been needing assistance with basic functional mobility skills. ASSESSMENT: A 47-year-old -Mosotho right-handed male previously known to me with the following problem list: 1. New acute to subacute infarct posterior aspect of the left temporal lobe. 2. Subacute to chronic infarct of the right frontal lobe. 3. Atrial fibrillation. Continuing on Eliquis. Cardiology has been consulted. 4. Right-sided weakness and hemiparesis that appears to be improving. 5. Expressive aphasia that appears to be improving. 6. Hypertension. 7. Hyperlipidemia. 8. Diabetes mellitus. PLAN: From a post-admission physician evaluation perspective, there are no relevant changes since the preadmission screening. The patient is admitted for an acute in-hospital inpatient rehabilitation program. Please see the above review regarding the prior and current medical and functional conditions and comorbidities. Please see the patient's previous and current functional status. As far as risk of complications, he does have the multiple medical comorbidities as noted above. Initial plan of care involves the interdisciplinary acute inpatient rehabilitation program with a goal of maximizing the patient's functional independence, so he can hopefully return back to his prior living situation. Prognosis is reasonably good with estimated length of stay probably around a week to 10 days and potentially longer. We will need to see how he does in his therapies. Potential barriers would include [facility] [address] [place] [address] HISTORY AND PHYSICAL Name: JAMAAL RASCON Maria Esther Room #: 514-P ADM IN .R.#: [id number] Admission: 03/19/17 Attend Phys: Obey De Los Santos MD Discharge: Date of : 66 Report #: [id number] his multiple medical comorbidities and decreased functional status. The patient does have Neurology involved as well as internal medicine and I note that Cardiology has been consulted as well. He will be involved in the interdisciplinary acute inpatient rehabilitation program with the goal of maximizing his functional independence, so that he can hopefully return back to his prior living situation. Discussion was held with the patient and his significant other. <ELECTRONICALLY SIGNED> By: Obey De Los Santos MD 03/27/17 1509 0710 0931 Obey De Los Santos MD /[facility]
--- NOTE | ~2017-03-18 | EKG ---
[place] [address] [facility] [place] [address] ELECTROCARDIOGRAM REPORT Name: JAMAAL RASCON Room #: 514-P ADM IN M.R.#: [id number] Admission: 03/19/17 Attend Phys: Obey De Los Santos MD Discharge: Date of : 66 Report #: [id number] THIS REPORT FOR: //name// [facility] Test Date: 2017-03-20 Test Time: 10:22:59 Pat Name: JAMAAL RASCON Department: Room: 514 P Gender: M Psych Arnp: IQRA : 1970 Requested By: Jc Ackerman Order Number: [id number] MD: Afshin Dai Measurements Intervals [place] Rate: 62 P: 30 [place]: 172 QRS: 14 QRSD: 98 T: 3 QT: 431 QTc: 438 Interpretive Statements Sinus rhythm Multiple premature complexes, vent & supraven Probable left ventricular hypertrophy ST elev, probable normal early repol pattern Compared to ECG 03/19/2017 13:18:02 ST (T wave) deviation now present Ventricular premature complex(es) no longer present Poor R-wave progression no longer present Electronically Signed On 03-20-2017 11:08:06 VEGETABLE TIER by Afshin Dai [email or web address] <ELECTRONICALLY SIGNED> By: Afshin Dai MD 03/20/17 1108 1022 1022 Afshin Dai MD /EPI
--- NOTE | ~2017-03-18 | HC ---
[facility] [place] [address] CONSULTATION Name: JAMAAL RASCON Room #: 514-P [facility] IN ..#: [id number] Admission: 03/19/17 Attend Phys: Obey De Los Santos MD Discharge: Date of : 66 Report #: [id number] THIS REPORT FOR: //name// CC: Obey Sierra DATE OF SERVICE: 03/19/2017 HISTORY OF PRESENT ILLNESS: This is a 47-year-old male patient who originally saw Dr. Solomon and he had a multicentric stroke in December, suggestive of embolization. He got subsequently admitted to the hospital with atrial fibrillation and he was seen by Cardiology. They started on anticoagulation, but then he had another stroke around 10 days after starting on anticoagulation. That stroke paralyzed him on the right side. He lost his speech, but he is becoming better since then. His rest of the workup so far has been unremarkable. REVIEW OF SYSTEMS: He is a diabetic. He is hypertensive. He has atrial fibrillation. He has a history of smoking. This is his relevant 14-point review of system. PAST MEDICAL HISTORY: Positive for CVA. FAMILY HISTORY: Negative for early age CVA. SOCIAL HISTORY: He was working before the CVA, but is not working anymore. PHYSICAL EXAMINATION: NEUROLOGIC: Examinations indicate he is alert. He is responsive. He can follow simple commands. His memory in fact looks about the same or may be trace better. His cranial nerve examination, 2-12, indicates slight facial weakness. He is weak in the right upper and right lower extremity, but only mildly so. I could not look at his fundus. HEART: Has shown atrial fibrillation. He does not have any respiratory difficulty. IMPRESSION: Recurrent cerebrovascular accident. It is most likely secondary to embolization. It happened when he was on anticoagulation. His workup for any hypercoagulable profile was negative. His homocystine should be checked as an outpatient because that cannot be checked as an inpatient because of the hospital policy. I will suggest getting Rheumatology and Hematology consult sometime in this patient, but main emphasis should be on cardiac evaluation and he is going to be seen by Cardiology. RECOMMENDATIONS: 1. Main management is going to be by Cardiology. [facility] [address] [place] [address] CONSULTATION Name: JAMAAL RASCON Room #: 514-P ADM IN M.R.#: [id number] Admission: 03/19/17 Attend Phys: Obey De Los Santos MD Discharge: Date of : 66 Report #: [id number] 2. I will suggest consider a FUNMILAYO to complete the workup in this patient. 3. It is possible that the thrombus which was present in the heart got thrown away, but consider doing a FUNMILAYO to complete the workup. I discussed all of this with the patient's family. I talked to the nurses. More than 50 minutes of time was taking care of this patient today and majority of that time was spent counseling the family and reviewing his records and I also talked to the nurses looking after this patient. <ELECTRONICALLY SIGNED> By: Emre Valverde MD 03/27/17 1815 1706 0013 Emre Valverde MD /nt
--- NOTE | ~2017-03-18 | PLAN ---
[facility] [place] [address] REHAB UNIT PLAN OF CARE Name: JAMAAL RASCON Room #: 514-P ADM IN M.R.#: [id number] Admission: 03/19/17 Attend Phys: Obey De Los Santos MD Discharge: Date of : 66 Report #: [id number] THIS REPORT FOR: //name// CC: Obey Sierra DATE OF SERVICE: 03/21/2017 PROGRESS NOTE/OVERALL PLAN OF CARE SUBJECTIVE: The patient is seen back today in followup. OBJECTIVE: GENERAL: He was in no distress. VITAL SIGNS: Last recorded temperature 98.3, pulse 54, respirations 20, and blood pressure 161/44. NEUROLOGICAL: No focal neurologic changes. He has been involved in therapies with transfers, mod assist. Gait mod assist 150 feet with a quad cane, mod assist with one stair in occupational therapy, lower body dressing is mod assist. He has moderate to severe comprehension. ASSESSMENT: 1. New acute to subacute infarct posterior aspect of left temporal lobe. 2. Subacute to chronic infarct right frontal lobe. 3. Atrial fibrillation, continuing on Eliquis. 4. Right-sided weakness and hemiparesis. 5. Expressive aphasia. 6. Hypertension. 7. Hyperlipidemia. 8. Diabetes mellitus. PLAN: The overall plan of care is based on the preadmission screen, post-admission physician evaluation and information garnered from therapy assessments. 1. Estimated length of stay is probably at least 10 days, maybe 1-2 weeks. We will need to see how he does in therapies. 2. Medical prognosis is reasonably good. 3. Anticipated interventions include the interdisciplinary acute inpatient rehabilitation program. 4. Anticipated functional outcomes would be for the patient to become modified independent with transfers, mobility and ADLs, so he can hopefully return back to his prior living situation. 5. Discharge destination is back to the home setting. 6. Expected therapy by discipline includes PT, OT and speech 1 [place] [address] REHAB UNIT PLAN OF CARE Name: RASCONJAMAAL Room #: 514-P [facility] IN [facility].#: [id number] Admission: 03/19/17 Attend Phys: Obey De Los Santos MD Discharge: Date of : 66 Report #: [id number] each five days a week throughout the duration of the acute inpatient rehabilitation stay. <ELECTRONICALLY SIGNED> By: Obey De Los Santos MD 03/27/17 1509 1026 1249 Obey De Los Santos MD /[facility]
--- NOTE | ~2017-03-18 | HC ---
[facility] [place] [address] CONSULTATION Name: JAMAAL RASCON Room #: 514-P [facility] IN .R.#: [id number] Admission: 03/19/17 Attend Phys: Obey De Los Santos MD Discharge: Date of : 66 Report #: [id number] THIS REPORT FOR: //name// CC: Obey Sierra DATE OF SERVICE: 03/19/2017 REASON FOR CONSULTATION: Consult has been requested by Dr. De Los Santos for atrial fibrillation, diabetes, and stroke. HISTORY OF PRESENT ILLNESS: The patient is a 47-year-old male with history of hypertension, dyslipidemia, CVA and atrial fibrillation, on anticoagulation, who was transferred from [facility] secondary to acute CVA for rehabilitation. The patient is known to me from his previous admission in December. The patient was admitted here in December for confusion. The patient was diagnosed with acute CVA and was transferred to rehabilitation at that time. The patient was discharged from rehabilitation on 01/05/2017. At that time, his primary complaint was confusion. He had an MRI of the brain done at that time, which showed multifocal acute to subacute infarct involving the left parietotemporal lobe distribution, partial obstruction with a low signal flow void within the left FCA, suggesting underlying partial thrombosis and stenosis. The MRI also showed chronic right frontoparietal infarct. The patient was readmitted here in February for atrial fibrillation and discharged on Eliquis. His residual deficit at that time was expressive aphasia. The patient presented to [facility] for right-sided weakness and right-sided facial droop. He was seen by neurologist during that time. He underwent a CT of the brain, which showed acute to subacute infarct in the posterosuperior aspect of the left temporal lobe and a subacute to chronic infarct of the right frontal lobe, no bleed. CTA showed occlusion of the left M1 segment, reconstitution of the distal M1, diminutive right M1 segment, narrowing of the proximal basilar artery. The patient was continued on Eliquis. Nifedipine was discontinued and the patient was started on losartan and metoprolol. The patient was transferred to rehab center for further physical therapy. The patient denies any complaint at present. He has right-sided weakness. He does have significant expressive aphasia. PAST MEDICAL HISTORY: Significant for: 1. CVA as above. 2. Hypertension. 3. Dyslipidemia. 4. Diabetes. 5. Atrial fibrillation, on anticoagulation. ALLERGIES: No known drug allergy. [address] [address] CONSULTATION Name: ABIODUNJAMAAL Room #: 514-P [facility] IN .R.#: [id number] Admission: 03/19/17 Attend Phys: Obey De Los Santos MD Discharge: Date of : 66 Report #: [id number] HOME MEDICATIONS: Reviewed, please look at the nursing documentation. SOCIAL HISTORY: Stopped smoking a couple of months ago. No history of alcohol abuse or illicit drug abuse. FAMILY HISTORY: Significant for hypertension and diabetes. REVIEW OF SYSTEMS: CONSTITUTIONAL: No recent weight loss or weight gain. No fever or chills. EYES: No change in vision. THROAT: Denies any sore throat. CARDIOVASCULAR: No chest pain, dizziness, or palpitations. RESPIRATORY: No cough or expectoration. GASTROINTESTINAL: No nausea, vomiting, or abdominal pain. GENITOURINARY: No dysuria or hematuria. NEUROLOGIC: Right-sided weakness and expressive aphasia. The 12-point review of systems is negative other than the positive and negative dictated in the history of present illness and the review of system. PHYSICAL EXAMINATION: VITAL SIGNS: Reviewed. GENERAL: The patient is awake and alert, not in acute respiratory distress. EYES: Pupils are equal, reactive to light, nonicteric conjunctivae. NECK: Supple, no JVD, no bruit, no lymphadenopathy. CARDIOVASCULAR SYSTEM: S1, S2 heard, negative S3. No murmur. Irregular. CHEST: Bilateral air entry present. Clear on auscultation. ABDOMEN: Soft, bowel sounds present, no mass, no organomegaly, no tenderness. PERIPHERY: No pedal edema. No calf tenderness. Dorsalis pedis 1+. NEUROLOGICAL: The patient has significant expressive aphasia. There is flattening of the right side of the nasolabial fold. Power is 3-4/5 in the right upper extremity and 4/5 in the right lower extremity. LABORATORY DATA: Reviewed. He had some labs done at [facility]. His chloride was 108, calcium was 8.7, creatinine was 0.7, blood glucose 137. The A1c was 7.6, hemoglobin was 11.9, potassium 3.9, and platelets 251. Sodium was 141. ASSESSMENT AND PLAN: 1. New acute to subacute infarct in the posterosuperior aspect of the left temporal lobe/subacute to chronic infarct of the right frontal lobe. The patient will be continued on Eliquis. We will reconsult neurologist. 2. Atrial fibrillation, on metoprolol and losartan. Continue with Eliquis. We will consult Cardiology. 3. Debility secondary to cerebrovascular accident. Physical therapy and occupational therapy as per rehabilitation. [facility] [address] [place] [address] CONSULTATION Name: JAMAAL RASCON Room #: 514-P [facility] IN .R.#: [id number] Admission: 03/19/17 Attend Phys: Obey De Los Santos MD Discharge: Date of : 66 Report #: [id number] 4. Deep venous thrombosis prophylaxis. The patient is on Eliquis. 5. History of dyslipidemia. It appears that he might be tolerating Zocor. The patient will be continued on Zocor 20 mg once a day. 6. Diabetes. The patient will be continued on present home medication. We will follow blood sugar and cover with sliding scale insulin. His last hemoglobin A1c done at [facility] was 7.6. Treatment plan has been explained to the patient in detail. <ELECTRONICALLY SIGNED> By: Jc Ackerman MD 03/20/17 1248 1225 0305 Jc Ackerman MD /nt
--- NOTE | ~2017-03-18 | PLAN ---
[facility] [place] [address] REHAB UNIT PLAN OF CARE Name: JAMAAL MONTAGUE Room #: 514-P ADM IN M.R.#: [id number] Admission: 03/19/17 Attend Phys: Obey De Los Santos MD Discharge: Date of : 66 Report #: [id number] THIS REPORT FOR: //name// CC: Obey Sierra DATE OF SERVICE: 04/06/2017 GAP EXCEPTION REQUEST TO [facility] Policy # [id number]. Subscriber is Jamaal Montague. Effective date is 02/17/2017. The patient was admitted to the acute inpatient rehabilitation [place] at [facility] on 03/20/2017 for a new acute to subacute infarct, posterior aspect of left temporal lobe. He has right hemiparesis. He has been fitted with an AFO brace and has expressive aphasia that appears to be improving. His prior history includes a prior CVA back in December of 2016 as well as a history of diabetes mellitus, hypertension and atrial fibrillation, on anticoagulation as well as dyslipidemia. Current rehabilitation status is the plan for him to discharge from the acute inpatient rehab [place] tomorrow 04/07/2017. Our rehab therapy team has authorized that this patient undergo a day rehabilitation therapy program. The medical day rehabilitation program is in the intensive daily, occupational, physical and speech therapy program to meet the higher intensity and complex rehabilitation needs indicated for this beneficiary. Nursing services are included as part of the program to monitor medical status on a daily basis to avoid unnecessary rehospitalizations. Rehab is the only provider to offer this intensive day program service, which this beneficiary needs and which would allow him to maximize his functional recovery. Full day therapy program is authorized under the revenue code 932. Attached is the patient's history and physical and progress notes for your review. ADDENDUM: Group Insurance # [id number]. Policy # [id number]. <ELECTRONICALLY SIGNED> By: Obey De Los Santos MD 04/07/17 1023 1437 0038 Obey De Los Santos MD /[facility]
--- NOTE | ~2017-03-18 | EKG ---
[address] [place] [facility] [address] ELECTROCARDIOGRAM REPORT Name: JAMAAL RASCON Room #: 514- ADM IN M.R.#: [id number] Admission: 03/19/17 Attend Phys: Obey De Los Santos MD Discharge: Date of : 66 Report #: [id number] THIS REPORT FOR: //name// [facility] Test Date: 2017-03-19 Test Time: 13:18:02 Pat Name: JAMAAL RASCON Department: Room: 514 P Gender: M Motorcyles Final Inspector: edita : 1970 Requested By: Jc Ackerman Order Number: [id number] MD: Eliceo Mares Measurements Intervals [place] Rate: 70 P: 35 [place]: 174 QRS: 23 QRSD: 106 T: 4 QT: 414 QTc: 447 Interpretive Statements Sinus rhythm Ventricular premature complex Poor R wave progression Baseline wander in lead(s) V2,V3 Compared to ECG 02/28/2017 16:01:48 Ventricular premature complex(es) now present Sinus tachycardia no longer present Electronically Signed On 03-19-2017 14:37:04 OPERATIONS TECHNICIAN by Eliceo Mares [email or web address] <ELECTRONICALLY SIGNED> By: Eliceo Mares MD, FACC 03/19/17 1437 1318 1318 Eliceo Mares MD, [facility] /EPI
[~2017-03-18 12:20] MED LIST changes: +ELIQUIS5 MG PO; +NIFEDIPINE ER30 M1 PO; +NITROGLYCERIN0.4 MG SUBLING
[2017-03-19] MEDS ORDERED: PEPCID20 MG PO (11:00)
[2017-03-19] MEDS ORDERED: LANTUS100 UNIT/M SUBQ (11:05)
[2017-03-19] MEDS ORDERED: COZAAR 50 MG TA50 M2 PO (11:06)
[2017-03-19] MEDS ORDERED: TOPROL XL25 MG PO (11:08)
[2017-03-19] MEDS ORDERED: SENNA8.6 MG PO (11:09)
[2017-03-19] MEDS ORDERED: ZOCOR20 MG PO (11:10)
[2017-03-19 12:32] LABS: HEMATOCRIT 37.1 % (42.0-52.0); HEMOGLOBIN 12.5 gm/dL (14.0-18.0); MCH 28.7 pg (26.0-34.0); MCHC 33.6 g/dL (28.0-37.0); MCV 85.4 fL (80.0-100.0); RBC 4.35 mil/uL (4.50-6.00); RDW 14.3 % (10.5-14.5); WBC 5.8 thou/uL (4.0-11.0)
[2017-03-19 12:44] LABS: CALCIUM 9.3 mg/dL (8.5-10.1); CREATININE 0.8 mg/dL (0.7-1.3); POTASSIUM 3.2 mmol/L (3.5-5.1)
[2017-03-19 20:12] VITALS: BP 170/90
[2017-03-20 08:12] VITALS: BP 160/92
[2017-03-20 09:47] VITALS: BP 155/95
[2017-03-20 19:55] VITALS: BP 175/88
[2017-03-21 08:00] VITALS: BP 161/94
[2017-03-21 11:10] LABS: ABSOLUTE NEUTROPHILS 2.8 thou/uL (1.4-8.2); BASOPHILS 0.7 % (0.0-2.0); EOSINOPHILS 7.1 % (0.0-3.0); HEMATOCRIT 38.7 % (42.0-52.0); HEMOGLOBIN 13.2 gm/dL (14.0-18.0); LYMPHOCYTES 30.7 % (24.0-44.0); MCH 29.2 pg (26.0-34.0); MCHC 34.2 g/dL (28.0-37.0); MCV 85.3 fL (80.0-100.0); PLATELET COUNT 255 thou/uL (150-400); POLYS 54.5 % (36.0-66.0); RBC 4.54 mil/uL (4.50-6.00); RDW 14.2 % (10.5-14.5); WBC 5.2 thou/uL (4.0-11.0)
[2017-03-21 11:20] LABS: CALCIUM 9.4 mg/dL (8.5-10.1); CREATININE 0.9 mg/dL (0.7-1.3); MAGNESIUM 1.7 mg/dL (1.8-2.4); POTASSIUM 3.4 mmol/L (3.5-5.1)
[2017-03-21 20:16] VITALS: BP 180/87
[2017-03-22 07:04] LABS: ABSOLUTE NEUTROPHILS 2.4 thou/uL (1.4-8.2); BASOPHILS 0.8 % (0.0-2.0); EOSINOPHILS 7.7 % (0.0-3.0); HEMOGLOBIN 12.4 gm/dL (14.0-18.0); LYMPHOCYTES 31.1 % (24.0-44.0); MCH 28.2 pg (26.0-34.0); MCHC 33.4 g/dL (28.0-37.0); MCV 84.7 fL (80.0-100.0); MONOCYTES 7.8 % (1.0-8.0); PLATELET COUNT 221 thou/uL (150-400); POLYS 52.6 % (36.0-66.0); RBC 4.38 mil/uL (4.50-6.00); RDW 13.9 % (10.5-14.5); WBC 4.5 thou/uL (4.0-11.0)
[2017-03-22 07:20] LABS: CALCIUM 9.1 mg/dL (8.5-10.1); CREATININE 0.8 mg/dL (0.7-1.3); MAGNESIUM 1.9 mg/dL (1.8-2.4); POTASSIUM 3.5 mmol/L (3.5-5.1)
[2017-03-22 08:00] VITALS: BP 168/85
[2017-03-22 14:00] VITALS: BP 146/90
[2017-03-22 20:00] VITALS: BP 166/87
[2017-03-23 08:00] VITALS: BP 167/101
[2017-03-23 08:22] VITALS: BP 162/92
[2017-03-23 19:59] VITALS: BP 181/107
[2017-03-23 23:16] VITALS: BP 160/90
[2017-03-24 09:00] VITALS: BP 155/90
[2017-03-24 19:59] VITALS: BP 167/104
[2017-03-24 21:25] VITALS: BP 159/93
[2017-03-25 10:35] VITALS: BP 177/91
[2017-03-25 19:46] VITALS: BP 168/82
[2017-03-26 08:30] VITALS: BP 169/88
[2017-03-26 21:05] VITALS: BP 182/92
[2017-03-26 23:00] VITALS: BP 176/75
[2017-03-27 04:37] LABS: HEMATOCRIT 37.3 % (42.0-52.0); HEMOGLOBIN 12.5 gm/dL (14.0-18.0); MCH 28.4 pg (26.0-34.0); MCHC 33.4 g/dL (28.0-37.0); RBC 4.39 mil/uL (4.50-6.00); RDW 14.5 % (10.5-14.5); WBC 5.4 thou/uL (4.0-11.0)
[2017-03-27 04:39] LABS: CALCIUM 9.1 mg/dL (8.5-10.1); CREATININE 0.7 mg/dL (0.7-1.3); MAGNESIUM 1.5 mg/dL (1.8-2.4); POTASSIUM 3.3 mmol/L (3.5-5.1)
[2017-03-27 08:00] VITALS: BP 161/92
[2017-03-27 19:55] VITALS: BP 157/80
[2017-03-28 08:30] VITALS: BP 161/88
[2017-03-28 20:10] VITALS: BP 140/84
[2017-03-29 06:51] LABS: CREATININE 0.9 mg/dL (0.7-1.3); MAGNESIUM 1.5 mg/dL (1.8-2.4); POTASSIUM 3.6 mmol/L (3.5-5.1)
[2017-03-29 08:00] VITALS: BP 161/85
[2017-03-29 21:09] VITALS: BP 179/83
[2017-03-30 08:15] VITALS: BP 155/81
[2017-03-30 20:19] VITALS: BP 156/84
[2017-03-31 08:22] VITALS: BP 184/101
[2017-03-31 21:12] VITALS: BP 171/86
[2017-04-01 06:26] LABS: BASOPHILS 0.9 % (0.0-2.0); EOSINOPHILS 6.8 % (0.0-3.0); HEMATOCRIT 36.2 % (42.0-52.0); LYMPHOCYTES 33.2 % (24.0-44.0); MCH 28.4 pg (26.0-34.0); MCHC 33.2 g/dL (28.0-37.0); MCV 85.7 fL (80.0-100.0); MONOCYTES 7.4 % (1.0-8.0); PLATELET COUNT 229 thou/uL (150-400); POLYS 51.7 % (36.0-66.0); RBC 4.22 mil/uL (4.50-6.00); RDW 14.8 % (10.5-14.5); WBC 5.8 thou/uL (4.0-11.0)
[2017-04-01 06:38] LABS: ALBUMIN 3.4 g/dL (3.4-5.0); CALCIUM 8.8 mg/dL (8.5-10.1); CREATININE 0.8 mg/dL (0.7-1.3); POTASSIUM 3.7 mmol/L (3.5-5.1); TOTAL BILIRUBIN 0.3 mg/dL (<0.1-1.0); TOTAL PROTEIN 6.5 g/dL (6.4-8.2)
[2017-04-01 08:00] VITALS: BP 146/83
[2017-04-01 20:20] VITALS: BP 180/91
[2017-04-02 20:07] VITALS: BP 164/75
[2017-04-03 07:39] VITALS: BP 149/81
[2017-04-03 19:47] VITALS: BP 164/78
[2017-04-04 08:00] VITALS: BP 148/92
[2017-04-04 20:04] VITALS: BP 172/96
[2017-04-05 07:30] VITALS: BP 140/94
[2017-04-05 19:32] VITALS: BP 179/98
[2017-04-06 08:00] VITALS: BP 164/91
[2017-04-06 17:38] VITALS: BP 164/91
[2017-04-06 19:15] VITALS: BP 187/103
[2017-04-07 04:42] VITALS: BP 150/97
[2017-04-07 08:04] VITALS: BP 170/98
[2017-04-07] MEDS ORDERED: METOPROLOL SUCC50 MG PO (11:58)
[2017-04-07] MEDS ORDERED: COZAAR100 MG PO (11:59)
[2017-04-07 12:11] VITALS: BP 164/91
== END 2017-04-07 17:45 | disposition home health service (06) | DRG 65 ==
LOC: ENTRNSPT 04-07 16:24
PROVIDERS: Nurse Practitioner; Physical Medicine & Rehabilitation; Registered Nurse
DX: I63.9 Cerebral infarction, unspecified (principal); G81.91 Hemiplegia, unspecified affecting right dominant side; I10 Essential (primary) hypertension; E78.5 Hyperlipidemia, unspecified; E11.9 Type 2 diabetes mellitus without complications; R53.81 Other malaise; F01.50 Vascular dementia, unspecified severity, without behavioral disturbance, psychotic disturbance, mood disturbance, and anxiety; I48.0 Paroxysmal atrial fibrillation; F43.22 Adjustment disorder with anxiety; E87.6 Hypokalemia; E83.42 Hypomagnesemia; R47.01 Aphasia; Z71.6 Tobacco abuse counseling; Z79.01 Long term (current) use of anticoagulants; Z79.4 Long term (current) use of insulin; Z79.899 Other long term (current) drug therapy; Z83.3 Family history of diabetes mellitus; Z82.49 Family history of ischemic heart disease and other diseases of the circulatory system
CPT/HCPCS: 10112

== ENCOUNTER → 2017-05-10 | Outpatient (CLI) | payer OTHER ==
[~2017-05-10] MED LIST changes: +COZAAR100 MG PO; +LANTUS100 UNIT/M SUBQ; +METOPROLOL SUCC50 MG PO; +SENNA8.6 MG PO; +TOPROL XL25 MG PO; +ZOCOR20 MG PO
== END ==
LOC: RAD 11:47
DX: J98.11 Atelectasis (principal)